=== PATIENT | male | born 1995 | race Caucasian/White ===

== ENCOUNTER 2016-09-03 18:35 | Emergency (ER) | payer MEDICAID ==
[2016-09-03 20:23] VITALS: BP 121/79
--- NOTE | 2016-09-03 20:41 | ED ---
Laceration/Wound HPI - HPI Summary HPI Summary: Patient presents to ED with a laceration to the left middle finger from a metal piece. Tetanus UTD. Wound is clean without no evidence FB. Patient was here last year for a simliar issue on the hand after punching a sign, obtained sutures and 3 days later was hospitalized for a deep wound infection over the hand. He subsequently had several surgeries to the area and is requesting antibiotics. It was explained to patient that instance is rare, and will treat without PO antibiotics, but to return if symptoms worsen. He is OK with plan. Pulses intact +2 bilaterally. Denies numbness or tingling. There are no temperature or color changes to the area. - History of Current Complaint Stated Complaint: HAND LAC Time Seen by Provider: 09/03/16 18:47 Hx Obtained From: Patient Mechanism of Injury: Sharp/Blunt Trauma Onset Severity: Mild Current Severity: Mild Pain Intensity: 0 Pain Scale Used: 0-10 Numeric Associated Signs & Symptoms: Negative Related Hx: Dominant Hand (Right) - Allergy/Home Medications Allergies/Adverse Reactions: Allergies Allergy/AdvReac Type Severity Reaction Status Date / Time No Known Allergies Allergy Verified 03/18/16 11:09 PMH/Surg Hx/FS Hx/Imm Hx Previously Healthy: Yes Endocrine/Hematology History: Denies: Hx Bone Marrow Disease, Hx Diabetes, Hx Sickle Cell Disease, Hx Thyroid Disease, Hx Anemia Cardiovascular History: Denies: Hx Hypertension Respiratory History: Denies: Hx Asthma, Hx Chronic Obstructive Pulmonary Disease (COPD) GI History: Denies: Hx Ulcer Sensory History: Denies: Hx Contacts or Glasses, Hx Hearing Aid Opthamlomology History: Denies: Hx Contacts or Glasses Psychiatric History: Reports: Hx Depression, Hx of Violent Episodes Against Others - oppositional defiance Denies: Hx Eating Disorder - Surgical History Surgery Procedure, Year, and Place: tonsils; colonoscopy Hx Anesthesia Reactions: No - Immunization History Date of Tetanus Vaccine: UTD Date of Influenza Vaccine: 01/30/16 Hx Pertussis Vaccination: No Immunizations Up to Date: No Infectious Disease History: No Infectious Disease History: Denies: Hx Clostridium Difficile, Hx Hepatitis, Hx Human Immunodeficiency Virus (HIV), Hx of Known/Suspected MRSA, Hx Shingles, Hx Tuberculosis, Hx Known/ Suspected VRE, Hx Known/Suspected VRSA, History Other Infectious Disease, Traveled Outside the [place] in Last 30 Days - Family History Known Family History: Positive: None Negative: Cardiac Disease, Hypertension, Diabetes - Social History Occupation: Unemployed Lives: With Family Alcohol Use: None Hx Substance Use: No Substance Use Type: Reports: None Hx Tobacco Use: Yes Smoking Status (MU): Former Smoker Type: Cigarettes Amount Used/How Often: 1/2ppd Review of Systems Constitutional: Negative Eyes: Negative Cardiovascular: Negative Respiratory: Negative Gastrointestinal: Negative Positive: no symptoms reported, see HPI Positive: Other - .5cm laceration to the webbing of the middle finger of left hand Neurological: Negative Psychological: Normal All Other Systems Reviewed And Are Negative: Yes Physical Exam Triage Information Reviewed: Yes Vital Signs On Initial Exam: Initial Vitals Temp Pulse Resp BP Pulse Ox 98.5 F 95 18 122/72 100 09/03/16 18:46 09/03/16 18:46 09/03/16 18:46 09/03/16 18:46 09/03/16 18:46 Vital Signs Reviewed: Yes Appearance: Positive: Well-Appearing, Well-Nourished Skin: Positive: Warm, Skin Color Reflects Adequate Perfusion, Other - .5cm laceration to the webbing of the middle finger of left hand Head/Face: Positive: Normal Head/Face Inspection Eyes: Positive: EOMI, Conjunctiva Clear Neck: Positive: Supple, No Lymphadenopathy Respiratory/Lung Sounds: Positive: Clear to Auscultation, Breath Sounds Present Cardiovascular: Positive: Normal, RRR Musculoskeletal: Positive: Normal Neurological: Positive: Alert, Oriented to Person Place, Time, Speech Normal Psychiatric: Positive: Normal Procedures - Laceration/Wound Repair 1 Location: upper extremity Description: Linear Anesthesia: Local, 1.0%, Lido Betadine Prep?: No Laceration/Wound Explored: clean Suture Type: Prolene Number of Sutures: 2 Layer Closure?: No Sterile Dressing Applied?: No Diagnostics - Vital Signs Vital Signs Temp Pulse Resp BP Pulse Ox 09/03/16 20:22 98.5 F 89 16 121/79 09/03/16 19:02 98.5 F 95 18 122/72 100 09/03/16 18:46 98.5 F 95 18 122/72 100 - Laboratory Lab Statement: Any lab studies that have been ordered have been reviewed, and results considered in the medical decision making process. Laceration Repair Course/Dx - Course Course Of Treatment: Jet irrigated wound. lidocaine 1% without epi used. 2 sutures placed. Suture removal in 7 days. Tetanus UTD. No antibiotics needed. Patient will return if symptoms worsen. - Differential Dx Differental Diagnoses: Abrasion, Abscess, Avulsion, Laceration - Clinical Impression Provider Diagnoses: Laceration Discharge - Discharge Plan Condition: Stable Disposition: HOME Patient Education Materials: Care For Your Stitches (ED), Laceration (ED) Referrals: No Primary Care Phys,NOPCP [Primary Care Provider] - Additional Instructions: Follow up with your PCP for a wound check. Suture removal in 7 days. If you notice any redness or drainage from the area, come back to ED right away.
== END 2016-09-03 20:22 | disposition home or self-care (01) ==
LOC: ED 18:35
DX: S61.213A Laceration without foreign body of left middle finger without damage to nail, initial encounter (principal); W22.8XXA Striking against or struck by other objects, initial encounter; Y93.9 Activity, unspecified; Y92.9 Unspecified place or not applicable; Z87.891 Personal history of nicotine dependence
CPT/HCPCS: 12002; 99282